=== PATIENT | male | born 1975 | race Caucasian/White ===

== ENCOUNTER → 2024-09-12 09:23 | Outpatient (CLI) | payer BC, SELFPAY ==
[2024-09-12 19:24] LABS: Cholesterol 144 mg/dL (140-199); HDL Cholesterol 42 mg/dL (40-60); LDL Cholesterol Calculated 83 mg/dL (<100); Triglycerides 97 mg/dL (35-150)
[2024-09-12 19:56] LABS: Prostate Specific Antigen 0.859 ng/mL (0.10-4.00)
[2024-09-12 19:59] LABS: Testosterone 394 ng/dL (71.8-623)
== END ==
PROVIDERS: PCP Family Medicine; Visit Provider Family Medicine
DX: Z12.11 Encounter for screening for malignant neoplasm of colon (principal); Z12.5 Encounter for screening for malignant neoplasm of prostate; R79.89 Other specified abnormal findings of blood chemistry; Z13.6 Encounter for screening for cardiovascular disorders
CPT/HCPCS: 80061; 84153; 84403